=== PATIENT | male | born 1930 | race Caucasian/White ===

== ENCOUNTER → 2016-09-25 | Outpatient (CLI) | payer MEDICARE ==
[~2016-09-25] MED LIST: AMLO5TAB2 PO; ENAL10TA PO; ENAL10TA7 PO; METF850T PO; POTA1TAB4 PO; TAMS5CAP PO; ZOCO10TA PO; [UNRECOGNIZED DRUG - OTHER]
[2016-09-25 13:32] LABS: AUTOMATED NEUTROPHIL # 6.4 TH/MM3 (1.8-7.7); BASOPHIL % 0.5 % (0.0-2.0); EOSINOPHIL # 0.2 TH/MM3 (0-0.4); EOSINOPHIL % 2.6 % (0.0-4.0); HEMATOCRIT 39.1 % (39.0-51.0); HEMO FLAGS DIFF FINAL; LYMPH % 10.2 % (9.0-44.0); LYMPHOCYTE # 0.8 TH/MM3 (1.0-4.8); MEAN CELL VOLUME 90.3 FL (80.0-100.0); MEAN CORPUSCULAR HGB CONC 33.3 % (32.0-36.0); MONO % 5.9 % (0.0-8.0); NEUT % 80.8 % (16.0-70.0); PLATELET COUNT 154 TH/MM3 (150-450); RED BLOOD COUNT 4.33 MIL/MM3 (4.50-5.90); RED CELL DISTRIBUTION WIDTH 13.6 % (11.6-17.2); WHITE BLOOD COUNT 7.9 TH/MM3 (4.0-11.0)
[2016-09-25 13:48] LABS: ANION GAP 7 MEQ/L (5-15); AST (GOT) 14 U/L (15-37); BICARBONATE 32.7 MEQ/L (21.0-32.0); BLOOD UREA NITROGEN 21 MG/DL (7-18); CHLORIDE 101 MEQ/L (98-107); GLUCOSE,FASTING 128 MG/DL (74-99); POTASSIUM 3.7 MEQ/L (3.5-5.1); SODIUM (NA) 141 MEQ/L (136-145)
[2016-09-25 13:52] LABS: ALKALINE PHOSPHATASE 61 U/L (45-117); ALT (GPT) 17 U/L (12-78); GLOMERULAR FILTRATION RATE 52 ML/MIN (>89); HDL CHOLESTEROL 57.9 MG/DL (40.0-60.0); LDL CHOLESTEROL 65 MG/DL (0-99); TOTAL BILIRUBIN ADULT 1.4 MG/DL (0.2-1.0)
[2016-09-25 16:31] LABS: HEMOGLOBIN A1b 1.7 %; HEMOGLOBIN Ao 84.4 %; HEMOGLOBIN LA1C 2.2 %; HEMOGLOBIN P3 5.4 %
== END ==
LOC: PLAB 09:59
PROVIDERS: ATTEND Family Medicine
DX: E11.9 Type 2 diabetes mellitus without complications (principal); D64.9 Anemia, unspecified
CPT/HCPCS: 36415; 80053; 80061; 83036; 85025

== ENCOUNTER 2017-10-23 05:49 | Inpatient (IN) ==
[2017-10-25] MEDS ORDERED: Dextrose 50% in Water 50 ML Vial IV.PUSH PRN (00:01)
[2017-10-25] MEDS ORDERED: Morphine Sulfate Inj 2 MG/ML Vial IV.PUSH PRN (00:01)
[2017-10-25 06:15] LABS: Potassium 3.3 meq/L (3.5-5.1)
[2017-10-25 06:21] LABS: Calcium 8.6 mg/dL (8.5-10.1); Carbon Dioxide 34.2 meq/L (21.0-32.0)
[2017-10-25] MEDS ORDERED: Insulin NovoLOG Aspart Correctional Sugar Inj SQ SCH (08:00)
--- NOTE | 2017-10-25 08:25 | P.PNIM ---
Subjective Interval history: Doing better seen in follow up for new CHF exacerbation O2 better, awaiting cardiology f/u Physical Exam Vital signs: Vital Signs 10/25/17 00:00 10/25/17 04:00 10/25/17 07:21 Temperature 97 F L 97.1 F L 96.6 F L Pulse Rate 71 74 81 Respiratory Rate 20 20 20 Blood Pressure 109/65 154/72 H 107/60 Pulse Oximetry 98 98 100 Intake & Output 10/24/17 10/25/17 10/25/17 18:59 06:59 18:59 Intake Total 240 / 240 Output Total 750 / 750 Balance -510 / -510 Weight 76.7 kg 76.7 kg Intake: Oral 240 / 240 Output: Urine 750 / 750 Other: # Bowel Movements 1 Narrative: GENERAL: NAD, resting SKIN: Warm and dry. HEAD: Atraumatic. Normocephalic. EYES: Pupils equal and round. No scleral icterus. No injection or drainage. ENT: No nasal bleeding or discharge. Mucous membranes pink and moist. NECK: Trachea midline. No JVD. CARDIOVASCULAR: Regular rate and rhythm. RESPIRATORY: No accessory muscle use. Clear to auscultation. Breath sounds equal bilaterally. GASTROINTESTINAL: Abdomen soft, non-tender, nondistended. Hepatic and splenic margins not palpable. MUSCULOSKELETAL: Extremities without clubbing, cyanosis, or edema. No obvious deformities. NEUROLOGICAL: Awake and alert. No obvious cranial nerve deficits. Motor grossly within normal limits. Five out of 5 muscle strength in the arms and legs. Normal speech. PSYCHIATRIC: Appropriate mood and affect; insight and judgment normal. Results - Labs CBC & Chem 7: 10/24/17 06:20 10/25/17 05:30 Labs: Laboratory Results - last 24 hr 10/23/17 10/23/17 10/23/17 05:55 06:05 06:05 WBC RBC Hgb Hct MCV MCH MCHC RDW Plt Count MPV Neut % (Auto) Lymph % (Auto) [place] % (Auto) Eos % (Auto) Baso % (Auto) Neut # (Auto) Lymph # (Auto) [place] # (Auto) Eos # (Auto) Baso # (Auto) CBC Comment Puncture Site LT RADIAL Patient Temperature 98.6 HCO3 22 Base Excess -1.7 O2 Saturation 83 L* ABG pH 7.44 H ABG pCO2 33 L ABG pO2 50 L* ABG O2 Content 16.3 ABG Carboxyhemoglobin 1.6 ABG Methemoglobin 1.1 Hemoglobin 14.0 O2 Delivery Device ROOMAIR Inspired O2 21 Sodium 137 Potassium 3.8 Chloride 102 Carbon Dioxide 27.6 Anion Gap 7 BUN 24 H Creatinine 1.40 H Estimated GFR 48 L POC Glucose Random Glucose 177 H Lactic Acid Calcium 8.9 Magnesium 2.1 Total Bilirubin 1.6 H AST 18 ALT 20 Alkaline Phosphatase 96 Troponin I LESS THAN 0.02 L B-Natriuretic Peptide 466 H Total Protein 8.2 Albumin 4.3 TSH 3rd Generation Ur Collection Type Urine Color Urine Turbidity Urine pH Ur Specific [place] Urine Protein Urine Glucose (UA) Urine Ketones Urine Occult Blood Urine Nitrite Urine Bilirubin Urine Urobilinogen Ur Leukocyte Esterase Urine RBC Urine WBC Urine WBC Clumps Urine Bacteria Micro UA Comment 10/23/17 10/23/17 10/23/17 06:05 06:05 06:45 WBC 12.0 H RBC 4.64 Hgb 15.0 Hct 42.5 MCV 91.5 MCH 32.3 MCHC 35.3 RDW 13.0 Plt Count 231 MPV 7.8 Neut % (Auto) 77.7 H Lymph % (Auto) 13.4 [place] % (Auto) 4.9 Eos % (Auto) 2.4 Baso % (Auto) 1.6 Neut # (Auto) 9.3 H Lymph # (Auto) 1.6 [place] # (Auto) 0.6 Eos # (Auto) 0.3 Baso # (Auto) 0.2 CBC Comment DIFF FINAL Puncture Site Patient Temperature HCO3 Base Excess O2 Saturation ABG pH ABG pCO2 ABG pO2 ABG O2 Content ABG Carboxyhemoglobin ABG Methemoglobin Hemoglobin O2 Delivery Device Inspired O2 Sodium Potassium Chloride Carbon Dioxide Anion Gap BUN Creatinine Estimated GFR POC Glucose Random Glucose Lactic Acid 1.5 Calcium Magnesium Total Bilirubin AST ALT Alkaline Phosphatase Troponin I B-Natriuretic Peptide Total Protein Albumin [facility] 3rd Generation Ur Collection Type CLEAN CATCH Urine Color YELLOW Urine Turbidity SL CLOUDY Urine pH 6.0 Ur Specific [place] 1.020 Urine Protein 100 H Urine Glucose (UA) NEG Urine Ketones NEG Urine Occult Blood TRACE Urine Nitrite POS H Urine Bilirubin NEG Urine Urobilinogen 0.2 Ur Leukocyte Esterase SMALL H Urine RBC 4-9 H Urine WBC 25-49 H Urine WBC Clumps FEW H Urine Bacteria MANY H Micro UA Comment CULTURE INDICATED 10/23/17 10/23/17 10/24/17 14:17 18:00 06:20 WBC RBC Hgb Hct MCV MCH MCHC RDW Plt Count MPV Neut % (Auto) Lymph % (Auto) [place] % (Auto) Eos % (Auto) Baso % (Auto) Neut # (Auto) Lymph # (Auto) [place] # (Auto) Eos # (Auto) Baso # (Auto) CBC Comment Puncture Site Patient Temperature HCO3 Base Excess O2 Saturation ABG pH ABG pCO2 ABG pO2 ABG O2 Content ABG Carboxyhemoglobin ABG Methemoglobin Hemoglobin O2 Delivery Device Inspired O2 Sodium 138 Potassium 3.4 L Chloride 99 Carbon Dioxide 33.7 H Anion Gap 5 BUN 26 H Creatinine 1.50 H Estimated GFR 44 L POC Glucose Random Glucose 130 H Lactic Acid Calcium 8.4 L Magnesium Total Bilirubin 1.6 H AST 13 L ALT 16 Alkaline Phosphatase 71 Troponin I 0.04 0.04 B-Natriuretic Peptide Total Protein 7.0 D Albumin 3.6 D TSH 3rd Generation 1.170 Ur Collection Type Urine Color Urine Turbidity Urine pH Ur Specific [place] Urine Protein Urine Glucose (UA) Urine Ketones Urine Occult Blood Urine Nitrite Urine Bilirubin Urine Urobilinogen Ur Leukocyte Esterase Urine RBC Urine WBC Urine WBC Clumps Urine Bacteria Micro UA Comment 10/24/17 10/25/17 10/25/17 06:20 05:30 07:41 WBC 7.5 RBC 4.11 L Hgb 13.1 Hct 37.4 L MCV 91.0 MCH 31.9 MCHC 35.0 RDW 12.9 Plt Count 162 MPV 7.8 Neut % (Auto) 78.3 H Lymph % (Auto) 12.1 [place] % (Auto) 6.9 Eos % (Auto) 2.1 Baso % (Auto) 0.6 Neut # (Auto) 5.9 Lymph # (Auto) 0.9 L [place] # (Auto) 0.5 Eos # (Auto) 0.2 Baso # (Auto) 0.0 CBC Comment DIFF FINAL Puncture Site Patient Temperature HCO3 Base Excess O2 Saturation ABG pH ABG pCO2 ABG pO2 ABG O2 Content ABG Carboxyhemoglobin ABG Methemoglobin Hemoglobin O2 Delivery Device Inspired O2 Sodium 138 Potassium 3.3 L Chloride 97 L Carbon Dioxide 34.2 H Anion Gap 7 BUN 30 H Creatinine 1.60 H Estimated GFR 41 L POC Glucose 134 H Random Glucose 128 H Lactic Acid Calcium 8.6 Magnesium Total Bilirubin AST ALT Alkaline Phosphatase Troponin I B-Natriuretic Peptide Total Protein Albumin TSH 3rd Generation Ur Collection Type Urine Color Urine Turbidity Urine pH Ur Specific [place] Urine Protein Urine Glucose (UA) Urine Ketones Urine Occult Blood Urine Nitrite Urine Bilirubin Urine Urobilinogen Ur Leukocyte Esterase Urine RBC Urine WBC Urine WBC Clumps Urine Bacteria Micro UA Comment Assessment and Plan - Assessment (1) CHF (congestive heart failure) Code(s): I50.9 - Heart failure, unspecified Status: Acute Plan: improved Oxygenation, passed walk test gentle diuresis (2) HTN (hypertension) Code(s): I10 - Essential (primary) hypertension Status: Acute Plan: Some hypotension We will titrate Coreg and SADIE inhibitor Norvasc discontinued - Plan pending cardiac re eval, may need heart cath Discharge Planning: await cardiac planning home with [facility]
[2017-10-25] MEDS ORDERED: Senna/Docusate Sodium 8.6/50 MG Tablet PO SCH (09:00)
[2017-10-25] MEDS ORDERED: Furosemide 20 MG Tablet PO SCH (09:00)
[2017-10-25] MEDS ORDERED: Aspirin 325 MG Tablet PO SCH (09:00)
[2017-10-25] MEDS ORDERED: Heparin - SQ 10,000 UNITS/ML Vial SQ SCH (09:00)
[2017-10-25] MEDS ORDERED: Bisacodyl 10 MG Supp RECTAL PRN (09:00)
[2017-10-25] MEDS: Insulin NovoLOG Aspart Correctional Sugar Inj SQ SCH ×2 (09:46→11:39)
--- NOTE | 2017-10-25 15:40 | P.PNCA ---
Subjective Interval history: Doing well overall Passed walk test, off oxygen Physical Exam Vital signs: Vital Signs 10/25/17 00:00 10/25/17 04:00 10/25/17 07:21 Temperature 97 F L 97.1 F L 96.6 F L Pulse Rate 71 74 81 Respiratory Rate 20 20 20 Blood Pressure 109/65 154/72 H 107/60 Pulse Oximetry 98 98 100 Pulse Oximetry [Exertion on Room Air] Pulse Oximetry [Resting on Room Air] 10/25/17 08:00 10/25/17 08:41 10/25/17 11:22 Temperature 96.2 F L Pulse Rate 84 71 Respiratory Rate 20 Blood Pressure 118/61 Pulse Oximetry 95 96 Pulse Oximetry [Exertion on Room Air] 98 Pulse Oximetry [Resting on Room Air] 93 L Intake & Output 10/24/17 10/25/17 10/25/17 18:59 06:59 18:59 Intake Total 240 / 240 Output Total 750 / 750 Balance -510 / -510 Weight 76.7 kg 76.7 kg Intake: Oral 240 / 240 Output: Urine 750 / 750 Other: # Bowel Movements 1 Narrative: GENERAL: NAD, AAOx3 SKIN: Warm and dry. HEAD: Atraumatic. Normocephalic. EYES: Pupils equal and round. No scleral icterus. No injection or drainage. ENT: No nasal bleeding or discharge. Mucous membranes pink and moist. NECK: Trachea midline. No JVD. CARDIOVASCULAR: Regular rate and rhythm. RESPIRATORY: No accessory muscle use. Clear to auscultation. Breath sounds equal bilaterally. GASTROINTESTINAL: Abdomen soft, non-tender, nondistended. Hepatic and splenic margins not palpable. MUSCULOSKELETAL: Extremities without clubbing, cyanosis, or edema. No obvious deformities. NEUROLOGICAL: Awake and alert. No obvious cranial nerve deficits. Motor grossly within normal limits. Five out of 5 muscle strength in the arms and legs. Normal speech. PSYCHIATRIC: Appropriate mood and affect; insight and judgment normal. 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 Will hold off on cardiac catheterization, because afterwards he can not lift more than 10lbs for 3 days Will plan on discharging him home for follow up with me in the next week or so to set up LHC/RHC once he can set up help for him and his at home
== END 2017-10-25 14:41 | disposition home or self-care (01) ==
LOC: UNDODISIN → PHICU 07:01 → PH3 10-24 17:43
PROVIDERS: ADMIT Hospitalist; ATTEND Hospitalist

== ENCOUNTER 2018-03-07 12:05 | Observation (INO) ==
--- NOTE | 2018-03-07 12:40 | ED ---
HPI General Chief complaint: Weakness Stated complaint: Nausea/abdominal pain/weakness/poss UTI Time Seen by Provider: 03/07/18 12:26 Source: patient, family and old records reviewed Mode of arrival: ambulatory Limitations: no limitations History of Present Illness MD Complaint: Reports generalized weakness Onset (ago): week(s) (1.5) Duration: constant Location: Reports generalized Migration: Reports none Severity: moderate Relieving factors: none Exacerbating factors: none Context: Reports other (recent bronchitis and UTI. Also just started back on Lasix for CHF. Weakness and nausea started after meds for bronchitis, UTI and CHF started.) Associated symptoms: Reports loss of appetite and other (10 lb weight loss in 1.5 weeks probably d/t poor appetite and re-initiation of Lasix); Denies dysuria and fever/chills Related Data Home Medications Medication Instructions Recorded Confirmed metformin 500 mg PO BIDPC 10/24/17 03/07/18 potassium chloride 20 meq PO BID 10/24/17 03/07/18 simvastatin 10 mg PO HS 10/24/17 03/07/18 tamsulosin 0.4 mg PO HS 10/24/17 03/07/18 brimonidine 1 drp OPHTHALMIC (EYE) BID 02/24/18 03/07/18 calcium carbonate [Calcium 500] 500 mg PO BID 02/24/18 03/07/18 carvedilol [Coreg] 3.125 mg PO BID 02/24/18 03/07/18 ferrous sulfate 0 mg PO BID 02/24/18 03/07/18 lycopene 10 mg PO BID 02/24/18 03/07/18 timolol maleate 1 drp RIGHT EYE DAILY 02/24/18 03/07/18 Previous Rx's Medication Instructions Recorded lisinopril 5 mg PO DAILY #30 tab 10/25/17 furosemide [Lasix] 40 mg PO DAILY #30 tab 02/24/18 Allergies Allergy/AdvReac Type Severity Reaction Status Date / Time No Known Allergies Allergy Verified 03/07/18 12:20 Review of Systems ROS: all other systems reviewed are negative [facility] Medical History Medical History CHF (congestive heart failure) (Acute) Cardiomyopathy (Acute) Chronic kidney disease (Acute) Diabetes (Acute) Hyperlipidemia (Acute) Hypertension (Acute) Iron deficiency anemia (Acute) Surgical History Surgical History H/O hernia repair (Acute) Previous back surgery (Acute) Social History Social History Substance History: No History of Abuse Smoking Status: Never smoker How Often Do You Have a Drink Containing Alcohol: 2 to 4 times a month Recent Out of Country Travel within the Last 8 Weeks: No Exam Const General: cooperative, healthy appearing, comfortable, no acute distress and well developed Orientation: alert, awake and oriented x3 HENMT Head: normal to inspection, normocephalic and atraumatic Mouth: moist mucous membranes Eyes Alignment and Position: alignment normal and position abnormal Conjunctivae: conjunctivae normal Sclera: sclerae normal EOM: EOM intact bilaterally Neck Neck: normal visual inspection and full ROM Chest Chest: normal inspection of the chest Resp Effort & Inspection: normal respiratory effort and able to speak in complete sentences Auscultation: clear to auscultation bilaterally Cardio Rate: regular rate Rhythm: regular rhythm GI Inspection: normal to inspection Palpation: soft Back/Spine/Pelvis Cervical Spine: cervical ROM normal Thoracic/Lumbar Spine: thoraco-lumbar ROM normal Skin General: no rashes or lesions noted, turgor normal and dry skin Neuro General: alert, awake, oriented x3, moves all extremities and CN's II-XI intact bilaterally Extrem General: normal to inspection and full ROM Psych Appearance: grossly normal Mental Status: mental status grossly normal Speech and Movement: speech and movement normal Mood: congruent mood Affect: normal affect Attitude: cooperative Thought Process: normal Thought Content: normal Judgment: judgment good Course Consultations Consultation #1: Aubrey Mendoza PA-C for Dr. Bowser will place in OBS. Time: 14:42 Initial Documented Vital Signs Temperature 98.4 F 03/07/18 12:16 Pulse Rate 79 03/07/18 12:16 Respiratory Rate 16 03/07/18 12:16 Blood Pressure 155/82 H 03/07/18 12:16 Pulse Oximetry 100 03/07/18 12:16 Last Documented Vital Signs Temperature 98.4 F 03/07/18 12:16 Pulse Rate 74 03/07/18 13:30 Respiratory Rate 16 03/07/18 13:30 Blood Pressure 141/78 H 03/07/18 13:30 Pulse Oximetry 97 03/07/18 13:30 Medical Decision Making MDM Narrative Medical decision making narrative: This patient presents with weakness, nausea and just basically feeling very poorly for the last week and a half. His symptoms all started a week and a half ago. He was initially diagnosed with bronchitis and was placed on Zithromax. The next day, he presented here and was found to have a urinary tract infection. His antibiotic was changed to Keflex. He was also instructed to start back on his Lasix for CHF. Since then , he has just basically not rebounded. He does state that his breathing issue has now completely resolved. Rocephin has been ordered for his urinary tract infection. A 500 cc fluid bolus has been ordered because of his acute kidney injury. I will request admission to the hospital for further evaluation and treatment. Medical Screen Exam Complete: Yes Emergency Medical Condition: Yes Differential Diagnosis Differential Diagnosis: Differential diagnosis of weakness includes but is not limited to infection, CVA, electrolyte disturbance, renal failure, hypoglycemia Medical Records Medical records reviewed: Yes I reviewed the patient's medical records. Lab Data Lab results reviewed: Yes I reviewed the patient's lab results. Result diagrams: 03/07/18 12:58 03/07/18 12:58 Lab Results 03/07/18 03/07/18 03/07/18 Range/Units 12:58 12:58 12:58 CBC w Diff Auto diff final WBC 8.4 (4.0-11.0) th/mm3 RBC 4.76 (4.50-5.90) mil/mm3 Hgb 14.6 (13.0-17.0) gm/dL Hct 43.0 (39.0-51.0) % MCV 90.4 (80.0-100.0) fL MCH 30.8 (27.0-34.0) pg MCHC 34.1 (32.0-36.0) % RDW 12.3 (11.6-17.2) % Plt Count 198 (150-450) th/mm3 MPV 8.1 (7.0-11.0) fL Neut % (Auto) 84.9 H (16.0-70.0) % Lymph % (Auto) 8.9 L (9.0-44.0) % [place] % (Auto) 4.3 (0.0-8.0) % Eos % (Auto) 1.4 (0.0-4.0) % Baso % (Auto) 0.5 (0.0-2.0) % Neut # (Auto) 7.2 (1.8-7.7) th/mm3 Lymph # (Auto) 0.7 L (1.0-4.8) th/mm3 [place] # (Auto) 0.4 (0.0-0.9) th/mm3 Eos # (Auto) 0.1 (0.0-0.4) th/mm3 Baso # (Auto) 0.0 (0.0-0.2) th/mm3 WBC Differential . Differential Comment . Sodium 141 (136-145) meq/L Potassium 4.7 (3.5-5.1) meq/L Chloride 105 (98-107) meq/L Carbon Dioxide 28.5 (21.0-32.0) meq/L Anion Gap 8 (5-15) meq/L BUN 43 H (7-18) mg/dL Creatinine 2.00 H (0.60-1.30) mg/dL Estimated GFR 32 L (>89) mL/min Random Glucose 202 H (74-106) mg/dL Calcium 9.5 (8.5-10.1) mg/dL Magnesium 2.3 (1.5-2.5) mg/dL Total Bilirubin 1.0 (0.2-1.0) mg/dL AST 14 L (15-37) U/L ALT 23 (12-78) U/L Alkaline Phosphatase 69 (45-117) U/L Troponin I Less than 0.02 L (0.02-0.05) ng/mL B-Natriuretic Peptide 183 H (0-100) pg/mL Total Protein 7.6 (6.4-8.2) g/dL Albumin 4.2 (3.4-5.0) g/dL Urine Color (Yellw/Straw) Urine Clarity (Clear) Urine pH (5.0-8.5) Ur Specific [place] (1.002-1.035) Urine Protein (Neg-Trace) mg/dL Urine Glucose (UA) (Negative) mg/dL Urine Ketones (Negative) mg/dL Urine Occult Blood (Negative) Urine Nitrate (Negative) Urine Bilirubin (Negative) Urine Urobilinogen (Less than 2) mg/dL Ur Leukocyte Esterase (Negative) Urine WBC (0-5) /hpf Urine Bacteria (None) /hpf Micro UA Comment Ur Microscopic Review Urine Culture Comments 03/07/18 Range/Units 13:30 CBC w Diff WBC (4.0-11.0) th/mm3 RBC (4.50-5.90) mil/mm3 Hgb (13.0-17.0) gm/dL Hct (39.0-51.0) % MCV (80.0-100.0) fL MCH (27.0-34.0) pg MCHC (32.0-36.0) % RDW (11.6-17.2) % Plt Count (150-450) th/mm3 MPV (7.0-11.0) fL Neut % (Auto) (16.0-70.0) % Lymph % (Auto) (9.0-44.0) % [place] % (Auto) (0.0-8.0) % Eos % (Auto) (0.0-4.0) % Baso % (Auto) (0.0-2.0) % Neut # (Auto) (1.8-7.7) th/mm3 Lymph # (Auto) (1.0-4.8) th/mm3 [place] # (Auto) (0.0-0.9) th/mm3 Eos # (Auto) (0.0-0.4) th/mm3 Baso # (Auto) (0.0-0.2) th/mm3 WBC Differential Differential Comment Sodium (136-145) meq/L Potassium (3.5-5.1) meq/L Chloride (98-107) meq/L Carbon Dioxide (21.0-32.0) meq/L Anion Gap (5-15) meq/L BUN (7-18) mg/dL Creatinine (0.60-1.30) mg/dL Estimated GFR (>89) mL/min Random Glucose (74-106) mg/dL Calcium (8.5-10.1) mg/dL Magnesium (1.5-2.5) mg/dL Total Bilirubin (0.2-1.0) mg/dL AST (15-37) U/L ALT (12-78) U/L Alkaline Phosphatase (45-117) U/L Troponin I (0.02-0.05) ng/mL B-Natriuretic Peptide (0-100) pg/mL Total Protein (6.4-8.2) g/dL Albumin (3.4-5.0) g/dL Urine Color Yellow (Yellw/Straw) Urine Clarity Cloudy H (Clear) Urine pH 5.5 (5.0-8.5) Ur Specific [place] 1.020 (1.002-1.035) Urine Protein 30 H (Neg-Trace) mg/dL Urine Glucose (UA) Negative (Negative) mg/dL Urine Ketones Negative (Negative) mg/dL Urine Occult Blood Trace (Negative) Urine Nitrate Positive H (Negative) Urine Bilirubin Negative (Negative) Urine Urobilinogen 0.2 (Less than 2) mg/dL Ur Leukocyte Esterase Large H (Negative) Urine WBC 51-189 H (0-5) /hpf Urine Bacteria Many H (None) /hpf Micro UA Comment Culture indicated Ur Microscopic Review Microscopic reviewed Urine Culture Comments Culture indicated Imaging Data Radiologist's impression: Chest X-Ray 03/07/18 12:33 CONCLUSION: No acute findings. Resolution of pulmonary edema pattern compared with February 24. ECG Data EKG Prior to Arrival: No Attestation: I personally reviewed and interpreted this ECG as follows: (EKG shows a sinus rhythm with a rate of 74. He has a right bundle branch block. There is no acute STT wave change.) Prior ECG tracings: available for review (Unchanged) Discharge Plan Discharge Disposition Patient Disposition: 30 Still Patient Discharge Details Diagnosis: Urinary tract infection, Acute kidney injury Physicians Team ED Provider: Alexandrea Hayden Primary Care Provider: Chi Caal Rxs /Orders / Referrals /Forms Prescriptions: No Action simvastatin 10 mg Tablet 10 mg PO HS RF: 0 metformin 850 mg Tablet 500 mg PO BIDPC RF: 0 tamsulosin 0.4 mg Capsule,Extended Release 24hr 0.4 mg PO HS RF: 0 potassium chloride 20 mEq Tablet Extended Release 20 meq PO BID RF: 0 lisinopril 5 mg Tablet 5 mg PO DAILY Qty: 30 RF: 0 calcium carbonate [Calcium 500] 500 mg calcium (1,250 mg) Tablet 500 mg PO BID RF: 0 timolol maleate 0.25 % Drops 1 drp RIGHT EYE DAILY RF: 0 brimonidine 0.2 % Drops 1 drp OPHTHALMIC (EYE) BID RF: 0 lycopene 10 mg Capsule 10 mg PO BID RF: 0 ferrous sulfate 250 mg (50 mg iron) Tablet Extended Release PO BID RF: 0 carvedilol [Coreg] 3.125 mg tablet 3.125 mg PO BID RF: 0 furosemide [Lasix] 40 mg tablet 40 mg PO DAILY Qty: 30 RF: 0 Status ED Status: With Doctor
--- NOTE | 2018-03-07 13:06 | XR ---
EXAM DATE: 03/07/2018 12:59 PM EST AGE/SEX: 87 years / Male INDICATIONS: Nausea, CHF CLINICAL DATA: This is the patient's initial encounter. Patient reports that signs and symptoms have been present for 2 weeks and indicates a pain score of 0/10. MEDICAL/SURGICAL HISTORY: . Congestive heart failure. Hypercholesterolemia. Hypertension. Herni a. Diabetes. Enlarged prostate. Melanoma. . . . Hernia repair. Laminectomy COMPARISON: [facility], CHEST 2V PA&LAT, 02/24/2018. . FINDINGS: Previous pulmonary edema pattern has resolved. No new consolidation or effusion. No pneumothorax. Hea rt size within normal limits. CONCLUSION: No acute findings. Resolution of pulmonary edema pattern compared with February 24. Electronically signed by: Nick Kim MD 03/07/2018 1:04 PM EST
[2018-03-07 13:15] LABS: Baso % (Auto) 0.5 % (0.0-2.0); Eos # (Auto) 0.1 th/mm3 (0.0-0.4); Eos % (Auto) 1.4 % (0.0-4.0); Hemoglobin 14.6 gm/dL (13.0-17.0); Lymph # (Auto) 0.7 th/mm3 (1.0-4.8); Lymph % (Auto) 8.9 % (9.0-44.0); Mean Corpuscular HGB Conc 34.1 % (32.0-36.0); Mean Corpuscular Hemoglobin 30.8 pg (27.0-34.0); Mean Corpuscular Volume 90.4 fL (80.0-100.0); Mean Platelet Volume 8.1 fL (7.0-11.0); Mono # (Auto) 0.4 th/mm3 (0.0-0.9); Mono % (Auto) 4.3 % (0.0-8.0); Neut # (Auto) 7.2 th/mm3 (1.8-7.7); Neut % (Auto) 84.9 % (16.0-70.0); Platelet Count 198 th/mm3 (150-450); Red Blood Count 4.76 mil/mm3 (4.50-5.90); Red Cell Distribution Width 12.3 % (11.6-17.2); White Blood Count 8.4 th/mm3 (4.0-11.0)
[2018-03-07 13:17] LABS: Chloride 105 meq/L (98-107); Potassium 4.7 meq/L (3.5-5.1); Sodium 141 meq/L (136-145)
[2018-03-07 13:23] LABS: Albumin 4.2 g/dL (3.4-5.0); Calcium 9.5 mg/dL (8.5-10.1)
[2018-03-07 13:24] LABS: Anion Gap 8 meq/L (5-15); Blood Urea Nitrogen 43 mg/dL (7-18); Carbon Dioxide 28.5 meq/L (21.0-32.0); Glucose,Random 202 mg/dL (74-106); Magnesium 2.3 mg/dL (1.5-2.5)
[2018-03-07 13:27] LABS: Alanine Aminotransferase 23 U/L (12-78); Aspartate Aminotransferase 14 U/L (15-37); Glomerular Filtration Rate 32 mL/min (>89)
[2018-03-07 13:28] LABS: Total Protein 7.6 g/dL (6.4-8.2)
[2018-03-07 13:30] LABS: Alkaline Phosphatase 69 U/L (45-117)
[2018-03-07 13:53] LABS: Bilirubin,Urine Negative (Negative); Clarity,Urine Cloudy (Clear); Color,Urine Yellow (Yellw/Straw); Glucose,Urine (UA) Negative (Negative); Leukocyte Esterase,Urine Large (Negative); Nitrite,Urine Positive (Negative); PH,Urine 5.5 (5.0-8.5); Urobilinogen,Urine 0.2 mg/dL (Less than 2)
[2018-03-07 13:59] LABS: WBC,Urine 51-189 /hpf (0-5)
[2018-03-07 14:00] LABS: Bacteria,Urine Many /hpf
[2018-03-07] MEDS ORDERED: Sodium Chlor 0.9% Inj 500 ML IV.SIG SCH (14:00)
[2018-03-07] MEDS ORDERED: Bisacodyl 10 MG Supp RECTAL PRN (14:44)
[2018-03-07] MEDS ORDERED: Sod Chloride 0.9% Inj 1,000 ML IV.CONT SCH (14:45)
[2018-03-07] MEDS ORDERED: Acetaminophen 325 MG Tablet PO PRN (14:45)
[2018-03-07] MEDS ORDERED: Dextrose 50% in Water 50 ML Vial IV.PUSH PRN (14:50)
--- NOTE | 2018-03-07 15:36 | P.HP ---
History of Present Illness Primary Care Physician: Chi Caal MD Chief Complaint: Generalized weakness History of Present Illness: 87-year-old male with known history of hypertension, hyperlipidemia, congestive heart failure, diabetes, chronic kidney disease, iron deficient anemia who presented to the hospital because of generalized weakness, fatigue. Patient states that all of his symptoms started approximately 2 weeks ago when he was having upper respiratory infection, cough and congestion where he did go to an urgent care facility once prescribed medication. Patient did not get any better so he presented to the emergency department here on 02/24/18. Patient was found to have urinary tract infection at that time and was started on Keflex. Patient took medications until completed. However during the time he is taking medication he has nausea, poor appetite, not really eating that well. Started developing increased weakness, fatigue. Patient came back to the emergency department today and found to have urinary tract infection still. Upon review of medical records does not appears that the patient had a culture taken the last time he was here in order to determine what antibiotics with Timentin appropriate. Given that the patient has continued urinary tract infection with constitutional symptoms of weight loss, poor p.o. intake, nausea , weakness. Patient be admitted the hospital with IV fluids, antibiotics and monitoring of culture. Patient denies any other symptoms to include fever, chills, chest pain, shortness of breath, dyspnea, abdominal pain, abdominal pain , diarrhea, constipation. - Diagnosis (1) Urinary tract infection (2) Acute kidney injury Review of Systems All other systems reviewed negative except as stated in HPI Musculoskeletal: Reports muscle weakness PMFSH - History History Provided By: Patient - Medical History Medical History: Medical History (Last Reviewed 03/07/18 @ 12:38 by Alexandrea Hayden) CHF (congestive heart failure) Cardiomyopathy Chronic kidney disease Diabetes Hyperlipidemia Hypertension Iron deficiency anemia - Surgical History Surgical History: Surgical History (Last Reviewed 03/07/18 @ 12:38 by Alexandrea Hayden) H/O hernia repair Previous back surgery - Family History Family History: Family History (Last Updated 03/07/18 @ 15:28 by GUS Valdivia) Sister Family history of cancer Father Family history of cancer - Tobacco History Smoking Status: Never smoker - Alcohol History How Often Do You Have a Drink Containing Alcohol: 2 to 4 times a month - Substance Use History Substance History: No History of Abuse - Travel History Recent Travel Out of the Country Within the Last 8 Weeks: No - Immunization History Tetanus Immunization: Unsure Medications and Allergies Active Medications: Active Medications Acetaminophen (Tylenol) 650 mg PO Q4H PRN PRN Reason: Temp > 100.4 Al Hydroxide/Mg Hydroxide (Milk Of Magnesia Liq) 30 ml PO Q12H PRN PRN Reason: Mild Constipation Bisacodyl (Dulcolax Supp) 10 mg RECTAL DAILY PRN PRN Reason: SEVERE CONSITIPATION Brimonidine Tartrate (Alphagan 0.2% Opth Drops) 1 drops EACH EYE BID [facility] Carvedilol (Coreg) 3.125 mg PO BID [facility] Dextrose (D50w Vial) 50 ml IV.PUSH UNSCH PRN PRN Reason: PER HYPOGLYCEMIA PROTOCOL Glucagon (Glucagon Inj) 1 mg OTHER PRN PRN PRN Reason: for Hypoglycemia Protocol Ceftriaxone Sodium 1,000 mg/ (Sodium Chloride) 100 mls @ 200 mls/hr IV.SIG Q24H NATALIE Sodium Chloride (Ns Inj) 1,000 mls @ 42 mls/hr IV.CONT .[id number] NATALIE Stop: 03/08/18 14:33 Insulin Aspart (Novolog Insulin [place] Sugar Inj) 0 unit SQ ACHS NATALIE; Protocol Lactulose (Lactulose Liq) 30 ml PO DAILY PRN PRN Reason: SEVERE CONSITIPATION Lisinopril (Prinivil) 5 mg PO DAILY [facility] Ondansetron HCl (Zofran Inj) 4 mg IV.PUSH Q6H PRN PRN Reason: NAUSEA OR VOMITING Pravastatin Sodium (Pravachol) 20 mg PO HS [facility] Senna/Docusate Sodium (Lidia-Colace) 1 tab PO BID [facility] Sennosides (Senokot) 17.2 mg PO Q12H PRN PRN Reason: Moderate Constipation Sodium Chloride (Ns Flush) 2 ml IV.FLUSH PRN PRN PRN Reason: FLUSH AFTER USING IV ACCESS Tamsulosin HCl (Flomax) 0.4 mg PO HS NATALIE Temazepam (Restoril) 15 mg PO HS PRN PRN Reason: INSOMNIA Timolol Maleate (Timolol 0.25% Drops) 1 drops RIGHT EYE DAILY [facility] Allergies Allergy/AdvReac Type Severity Reaction Status Date / Time No Known Allergies Allergy Verified 03/07/18 12:20 Home Medications Medication Instructions Recorded Confirmed Type metformin 500 mg PO BIDPC 10/24/17 03/07/18 History potassium chloride 20 meq PO BID 10/24/17 03/07/18 History simvastatin 10 mg PO HS 10/24/17 03/07/18 History tamsulosin 0.4 mg PO HS 10/24/17 03/07/18 History brimonidine 1 drp OPHTHALMIC (EYE) BID 02/24/18 03/07/18 History calcium carbonate [Calcium 500] 500 mg PO BID 02/24/18 03/07/18 History carvedilol [Coreg] 3.125 mg PO BID 02/24/18 03/07/18 History ferrous sulfate 0 mg PO BID 02/24/18 03/07/18 History lycopene 10 mg PO BID 02/24/18 03/07/18 History timolol maleate 1 drp RIGHT EYE DAILY 02/24/18 03/07/18 History Exam Vital signs: Vital Signs 03/07/18 12:16 03/07/18 12:33 03/07/18 13:30 Temperature 98.4 F Pulse Rate 79 74 Respiratory Rate 16 16 Blood Pressure 155/82 H 141/78 H Pulse Oximetry 100 97 97 03/07/18 14:51 Temperature Pulse Rate 72 Respiratory Rate 16 Blood Pressure 128/77 Pulse Oximetry 98 Intake & Output 03/06/18 03/07/18 03/07/18 18:59 06:59 18:59 Weight 73.5 kg Narrative: GENERAL: Well-developed, well-nourished, in no acute distress. alert and orientated HEENT: Head is normocephalic without any lesions or masses noted. Facial features are symmetric. Eyes: Pupils equal round reactive to light. Extraocular muscles are intact. Conjunctivae were clear. Oropharyngeal: Pharynx without any erythema edema. Tongue is midline without deviation. Buccal mucosa is moist without any masses or lesions NECK: Supple without any masses. Trachea midline no deviation. No JVD, no bruits are appreciated CARDIAC: Regular rhythm, regular rate. S1/S2 are heard. No murmurs gallops or rubs. LUNGS: Clear to auscultation bilaterally. No wheeze, rhonchi or rales. No use of accessory muscles on inspiration or expiration. ABDOMEN: Soft, nontender. Nondistended. Bowel sounds heard in all 4 quadrants. No organomegaly or masses. Negative rebound, negative guarding EXTREMITIES: No edema, pulses are equal bilaterally. No cyanosis or clubbing NEUROLOGY: Mood and affect appear appropriate. Cranial nerves II through XII grossly intact. Muscle strength 5/5 in upper and lower extremities bilaterally. Deep tendon reflexes are 2+ in upper and lower extremities bilaterally. Results - Labs CBC & Chem 7: 03/07/18 12:58 03/07/18 12:58 Labs: Laboratory Results - last 24 hr 03/07/18 03/07/18 03/07/18 12:58 12:58 12:58 CBC w Diff Auto diff final WBC 8.4 RBC 4.76 Hgb 14.6 Hct 43.0 MCV 90.4 MCH 30.8 MCHC 34.1 RDW 12.3 Plt Count 198 MPV 8.1 Neut % (Auto) 84.9 H Lymph % (Auto) 8.9 L [place] % (Auto) 4.3 Eos % (Auto) 1.4 Baso % (Auto) 0.5 Neut # (Auto) 7.2 Lymph # (Auto) 0.7 L [place] # (Auto) 0.4 Eos # (Auto) 0.1 Baso # (Auto) 0.0 WBC Differential . Differential Comment . Sodium 141 Potassium 4.7 Chloride 105 Carbon Dioxide 28.5 Anion Gap 8 BUN 43 H Creatinine 2.00 H Estimated GFR 32 L Random Glucose 202 H Calcium 9.5 Magnesium 2.3 Total Bilirubin 1.0 AST 14 L ALT 23 Alkaline Phosphatase 69 Troponin I Less than 0.02 L B-Natriuretic Peptide 183 H Total Protein 7.6 Albumin 4.2 Urine Color Urine Clarity Urine pH Ur Specific [place] Urine Protein Urine Glucose (UA) Urine Ketones Urine Occult Blood Urine Nitrate Urine Bilirubin Urine Urobilinogen Ur Leukocyte Esterase Urine WBC Urine Bacteria Micro UA Comment Ur Microscopic Review Urine Culture Comments 03/07/18 13:30 CBC w Diff WBC RBC Hgb Hct MCV MCH MCHC RDW Plt Count MPV Neut % (Auto) Lymph % (Auto) [place] % (Auto) Eos % (Auto) Baso % (Auto) Neut # (Auto) Lymph # (Auto) [place] # (Auto) Eos # (Auto) Baso # (Auto) WBC Differential Differential Comment Sodium Potassium Chloride Carbon Dioxide Anion Gap BUN Creatinine Estimated GFR Random Glucose Calcium Magnesium Total Bilirubin AST ALT Alkaline Phosphatase Troponin I B-Natriuretic Peptide Total Protein Albumin Urine Color Yellow Urine Clarity Cloudy H Urine pH 5.5 Ur Specific [place] 1.020 Urine Protein 30 H Urine Glucose (UA) Negative Urine Ketones Negative Urine Occult Blood Trace Urine Nitrate Positive H Urine Bilirubin Negative Urine Urobilinogen 0.2 Ur Leukocyte Esterase Large H Urine WBC 51-189 H Urine Bacteria Many H Micro UA Comment Culture indicated Ur Microscopic Review Microscopic reviewed Urine Culture Comments Culture indicated - Imaging Impressions Chest X-Ray 03/07/18 12:33 CONCLUSION: No acute findings. Resolution of pulmonary edema pattern compared with February 24. Caprini VTE Risk Assessment Caprini VTE Risk Assessment: Moderate/High Risk (score >= 2) Caprini Risk Assessment Model: Point Value = 1 Point Value = 2 Point Value = 3 Point Value = 5 Age 41-60 Minor surgery BMI > 25 kg/m2 Swollen legs Varicose veins or History of unexplained or recurrent spontaneous Oral contraceptives or hormone replacement Sepsis (< 1 month) Serious lung disease, including pneumonia (< 1 month) Abnormal pulmonary function Acute myocardial infarction Congestive heart failure (< 1 month) History of inflammatory bowel disease Medical patient at bed rest Age 61-74 Arthroscopic surgery Major open surgery (> 45 min) Laparoscopic surgery (> 45 min) Malignancy Confined to bed (> 72 hours) Immobilizing plaster cast Central venous access Age >= 75 History of VTE Family history of VTE Factor V Leiden Prothrombin [id number] Lupus anticoagulant Anticardiolipin antibodies Elevated serum homocysteine Heparin-induced thrombocytopenia Other congenital or acquired thrombophilia Stroke (< 1 month) Elective arthroplasty Hip, pelvis, or leg fracture Acute spinal cord injury (< 1 month) Prophylaxis Regimen: Total Risk Factor Score Risk Level Prophylaxis Regimen 0-1 Low Early ambulation 2 Moderate Order ONE of the following: *Sequential Compression Device (SCD) *Heparin 5000 units SQ BID 3-4 Higher Order ONE of the following medications: *Heparin 5000 units SQ TID *Enoxaparin/Lovenox 40 mg SQ daily (WT < 150 kg, CrCl > 30 mL/min) *Enoxaparin/Lovenox 30 mg SQ daily (WT < 150 kg, CrCl > 10-29 mL/min) *Enoxaparin/Lovenox 30 mg SQ BID (WT < 150 kg, CrCl > 30 mL/min) AND/OR *Sequential Compression Device (SCD) 5 or more Highest Order ONE of the following medications: *Heparin 5000 units SQ TID (Preferred with Epidurals) *Enoxaparin/Lovenox 40 mg SQ daily (WT < 150 kg, CrCl > 30 mL/min) *Enoxaparin/Lovenox 30 mg SQ daily (WT < 150 kg, CrCl > 10-29 mL/min) *Enoxaparin/Lovenox 30 mg SQ BID (WT < 150 kg, CrCl > 30 mL/min) AND *Sequential Compression Device (SCD) Assessment and Plan - Assessment (1) Urinary tract infection Code(s): N39.0 - Urinary tract infection, site not specified Status: Acute (2) Acute kidney injury Code(s): N17.9 - Acute kidney failure, unspecified Status: Acute - Plan Urinary tract infection -Patient presented with symptoms of generalized weakness, fatigue -Patient was on antibiotics for upper respiratory infection to include Keflex, however last time he was treated for your tract infection there was no culture taken to see if medication was susceptible -Patient started on Rocephin -Continue to monitor cultures Generalized weakness -Likely secondary to urinary tract infection -Physical therapy evaluation Chronic kidney disease stage III with mild worsening -Likely secondary to diuresis for CHF and poor p.o. intake -Gently hydrate 1 L of fluid -Monitor renal studies Hypertension, hyper lipidemia, congestive heart failure, cardia myopathy -Home medications continued Diabetes -Accu-Cheks with sliding scale insulin DVT prevention -Sequential compression devices (1) Urinary tract infection Qualifiers: Urinary tract infection type: site unspecified Hematuria presence: with hematuria Qualified Code(s): N39.0 - Urinary tract infection, site not specified; R31.9 - Hematuria, unspecified
[2018-03-07] MEDS: Insulin NovoLOG Aspart Correctional Sugar Inj SQ SCH ×2 (16:35→21:32)
[2018-03-07 20:45] VITALS: RESP 18
[2018-03-07] MEDS ORDERED: Temazepam 15 MG Capsule PO PRN (21:00)
[2018-03-07] MEDS: Brimonidine 0.2% Opth Drops 5 ML Bottle EACH EYE SCH (21:30)
[2018-03-07] MEDS: Senna/Docusate Sodium 8.6/50 MG Tablet PO SCH (21:31)
[2018-03-08 05:46] LABS: Baso # (Auto) 0.1 th/mm3 (0.0-0.2); Baso % (Auto) 0.9 % (0.0-2.0); Eos # (Auto) 0.2 th/mm3 (0.0-0.4); Eos % (Auto) 2.4 % (0.0-4.0); Hematocrit 39.3 % (39.0-51.0); Hemoglobin 12.6 gm/dL (13.0-17.0); Lymph % (Auto) 13.2 % (9.0-44.0); Mean Corpuscular Hemoglobin 29.9 pg (27.0-34.0); Mean Corpuscular Volume 93.4 fL (80.0-100.0); Mean Platelet Volume 8.2 fL (7.0-11.0); Mono # (Auto) 0.5 th/mm3 (0.0-0.9); Mono % (Auto) 6.6 % (0.0-8.0); Neut # (Auto) 5.5 th/mm3 (1.8-7.7); Neut % (Auto) 76.9 % (16.0-70.0); Platelet Count 171 th/mm3 (150-450); Red Cell Distribution Width 12.2 % (11.6-17.2); White Blood Count 7.3 th/mm3 (4.0-11.0)
[2018-03-08 05:56] LABS: Potassium 4.1 meq/L (3.5-5.1)
[2018-03-08 06:05] LABS: Calcium 8.6 mg/dL (8.5-10.1); Carbon Dioxide 29.3 meq/L (21.0-32.0)
[2018-03-08] MEDS: Insulin NovoLOG Aspart Correctional Sugar Inj SQ SCH ×2 (07:29→11:49)
--- NOTE | 2018-03-08 08:04 | P.PNIM ---
Subjective Interval history: 87-year-old male who is seen and examined today for follow-up on weakness, poor appetite, urinary tract infection, acute kidney injury. Patient is doing much better. His appetite has returned. He finished eating his breakfast. Patient would like to go home today. Patient remains afebrile. Physical Exam Vital signs: Vital Signs 03/07/18 12:16 03/07/18 12:33 03/07/18 13:30 Temperature 98.4 F Pulse Rate 79 74 Respiratory Rate 16 16 Blood Pressure 155/82 H 141/78 H Pulse Oximetry 100 97 97 03/07/18 14:51 03/07/18 16:00 03/07/18 20:00 Temperature 97.6 F 98.0 F Pulse Rate 72 75 73 Respiratory Rate 16 20 18 Blood Pressure 128/77 176/81 H 157/74 H Pulse Oximetry 98 99 96 03/08/18 00:00 Temperature 94.5 F L Pulse Rate 69 Respiratory Rate 18 Blood Pressure 108/57 L Pulse Oximetry 95 Intake & Output 03/07/18 03/08/18 03/08/18 18:59 06:59 18:59 Intake Total 600 / 600 100 / 100 Output Total 1200 / 1200 250 / 250 Balance 600 / 600 -1100 / -1100 -250 / -250 Weight 73.5 kg 74.2 kg Intake: IV 600 / 600 NS Inj 500 ML @ 1000 mls/hr IV. 500 / 500 SIG BOLUS NATALIE Rx#:[id number] Rocephin Inj 1,000 MG In NS Inj 100 / 100 100 ML @ 200 mls/hr IV.SIG ONCE ONE Rx#:[id number] Oral 100 / 100 Output: Urine 1200 / 1200 250 / 250 Other: Date of Last Bowel Movement 03/07/18 Narrative: GENERAL: Well-developed, well-nourished, in no acute distress. alert and orientated HEENT: Head is normocephalic without any lesions or masses noted. Facial features are symmetric. Eyes: Extraocular muscles are intact. Conjunctivae were clear. NECK: Supple without any masses. Trachea midline no deviation. No JVD, CARDIAC: Regular rhythm, regular rate. S1/S2 are heard. No murmurs gallops or rubs. LUNGS: Clear to auscultation bilaterally. No wheeze, rhonchi or rales. No use of accessory muscles on inspiration or expiration. ABDOMEN: Soft, nontender. Nondistended. Bowel sounds heard in all 4 quadrants. No organomegaly or masses. Negative rebound, negative guarding EXTREMITIES: No edema, pulses are equal bilaterally. No cyanosis or clubbing NEUROLOGY: Mood and affect appear appropriate. Cranial nerves II through XII grossly intact. Moving all extremities, speech is clear Results - Labs CBC & Chem 7: 03/08/18 04:45 03/08/18 04:45 Laboratory Results - last 24 hr 03/07/18 03/07/18 03/07/18 12:58 12:58 12:58 CBC w Diff Auto diff final WBC 8.4 RBC 4.76 Hgb 14.6 Hct 43.0 MCV 90.4 MCH 30.8 MCHC 34.1 RDW 12.3 Plt Count 198 MPV 8.1 Neut % (Auto) 84.9 H Lymph % (Auto) 8.9 L [place] % (Auto) 4.3 Eos % (Auto) 1.4 Baso % (Auto) 0.5 Neut # (Auto) 7.2 Lymph # (Auto) 0.7 L [place] # (Auto) 0.4 Eos # (Auto) 0.1 Baso # (Auto) 0.0 WBC Differential . Differential Comment . Sodium 141 Potassium 4.7 Chloride 105 Carbon Dioxide 28.5 Anion Gap 8 BUN 43 H Creatinine 2.00 H Estimated GFR 32 L POC Glucose Random Glucose 202 H Calcium 9.5 Magnesium 2.3 Total Bilirubin 1.0 AST 14 L ALT 23 Alkaline Phosphatase 69 Troponin I Less than 0.02 L B-Natriuretic Peptide 183 H Total Protein 7.6 Albumin 4.2 Urine Color Urine Clarity Urine pH Ur Specific [place] Urine Protein Urine Glucose (UA) Urine Ketones Urine Occult Blood Urine Nitrate Urine Bilirubin Urine Urobilinogen Ur Leukocyte Esterase Urine WBC Urine Bacteria Micro UA Comment Ur Microscopic Review Urine Culture Comments 03/07/18 03/07/18 03/07/18 13:30 16:32 20:32 CBC w Diff WBC RBC Hgb Hct MCV MCH MCHC RDW Plt Count MPV Neut % (Auto) Lymph % (Auto) [place] % (Auto) Eos % (Auto) Baso % (Auto) Neut # (Auto) Lymph # (Auto) [place] # (Auto) Eos # (Auto) Baso # (Auto) WBC Differential Differential Comment Sodium Potassium Chloride Carbon Dioxide Anion Gap BUN Creatinine Estimated GFR POC Glucose 152 H 151 H Random Glucose Calcium Magnesium Total Bilirubin AST ALT Alkaline Phosphatase Troponin I B-Natriuretic Peptide Total Protein Albumin Urine Color Yellow Urine Clarity Cloudy H Urine pH 5.5 Ur Specific [place] 1.020 Urine Protein 30 H Urine Glucose (UA) Negative Urine Ketones Negative Urine Occult Blood Trace Urine Nitrate Positive H Urine Bilirubin Negative Urine Urobilinogen 0.2 Ur Leukocyte Esterase Large H Urine WBC 51-189 H Urine Bacteria Many H Micro UA Comment Culture indicated Ur Microscopic Review Microscopic reviewed Urine Culture Comments Culture indicated 03/08/18 03/08/18 03/08/18 04:45 04:45 07:10 CBC w Diff Auto diff final WBC 7.3 RBC 4.20 L Hgb 12.6 L D Hct 39.3 MCV 93.4 MCH 29.9 MCHC 32.0 RDW 12.2 Plt Count 171 MPV 8.2 Neut % (Auto) 76.9 H Lymph % (Auto) 13.2 [place] % (Auto) 6.6 Eos % (Auto) 2.4 Baso % (Auto) 0.9 Neut # (Auto) 5.5 Lymph # (Auto) 1.0 [place] # (Auto) 0.5 Eos # (Auto) 0.2 Baso # (Auto) 0.1 WBC Differential . Differential Comment . Sodium 142 Potassium 4.1 Chloride 106 Carbon Dioxide 29.3 Anion Gap 7 BUN 34 H Creatinine 1.60 H Estimated GFR 41 L POC Glucose 123 H Random Glucose 121 H Calcium 8.6 D Magnesium Total Bilirubin AST ALT Alkaline Phosphatase Troponin I B-Natriuretic Peptide Total Protein Albumin Urine Color Urine Clarity Urine pH Ur Specific [place] Urine Protein Urine Glucose (UA) Urine Ketones Urine Occult Blood Urine Nitrate Urine Bilirubin Urine Urobilinogen Ur Leukocyte Esterase Urine WBC Urine Bacteria Micro UA Comment Ur Microscopic Review Urine Culture Comments - Imaging Impressions Chest X-Ray 03/07/18 12:33 CONCLUSION: No acute findings. Resolution of pulmonary edema pattern compared with February 24. Assessment and Plan - Assessment (1) Urinary tract infection Code(s): N39.0 - Urinary tract infection, site not specified Status: Acute (2) Acute kidney injury Code(s): N17.9 - Acute kidney failure, unspecified Status: Acute - Plan Urinary tract infection -Patient presented with symptoms of generalized weakness, fatigue -Patient was on antibiotics for upper respiratory infection to include Keflex, however last time he was treated for your tract infection there was no culture taken to see if medication was susceptible -Continue on Rocephin -Continue to monitor cultures Generalized weakness, improved -Likely secondary to urinary tract infection -Physical therapy evaluation evaluated patient and no outpatient recommendations were suggested Chronic kidney disease stage III with mild worsening, improving -Likely secondary to diuresis for CHF and poor p.o. intake -Gently hydrate 1 L of fluid -Monitor renal studies which have improved overnight Hypertension, hyper lipidemia, congestive heart failure, cardia myopathy -Home medications continued Diabetes -Accu-Cheks with sliding scale insulin DVT prevention -Sequential compression devices Discharge Planning: Discharge home in stable condition Activity: Ad ayanna. Diet: Healthy heart diet Medication per medication reconciliation Follow-up with primary medical doctor in 1 week (1) Urinary tract infection Qualifiers: Urinary tract infection type: site unspecified Hematuria presence: with hematuria Qualified Code(s): N39.0 - Urinary tract infection, site not specified; R31.9 - Hematuria, unspecified
[2018-03-08] MEDS: Senna/Docusate Sodium 8.6/50 MG Tablet PO SCH (08:07)
[2018-03-08] MEDS: Brimonidine 0.2% Opth Drops 5 ML Bottle EACH EYE SCH (08:09)
[2018-03-08] MEDS ORDERED: Lisinopril 5 MG Tablet PO SCH (09:00)
[2018-03-08] MEDS ORDERED: Timolol 0.25% Drops 5 ML Bottle RIGHT EYE SCH (09:00)
[2018-03-08 09:20] VITALS: O2SAT 97
--- NOTE | 2018-03-08 12:08 | ECG ---
Date Performed: 03/07/2018 Time Performed: 12:54:15 PTAGE: 87 years EKG: Sinus rhythm MARKED LEFT AXIS DEVIATION RIGHT BUNDLE BRANCH BLOCK POSSIBLE SEPTAL MYOCARDIAL INFARCTION ABNORMAL ECG Since the PREVIOUS TRACING , no significant change noted PREVIOUS TRACIN10/23/2017 06.53 DOCTOR: Javier Lakhani Interpretating Date/Time 03/08/2018 12:03:39
[2018-03-08 12:19] VITALS: BP 138/60; PULSE 74; TEMP 97.2
== END 2018-03-08 14:53 | disposition home or self-care (01) ==
LOC: PHEDA 12:05 → PHED 12:05 → PH3 15:28
PROVIDERS: ADMIT Hospitalist; ATTEND Hospitalist